=== PATIENT | female | born 1935 | race Caucasian/White ===

== ENCOUNTER 2023-03-02 22:03 | Emergency (ER) | payer MEDICARE ==
[~2023-03-02] VITALS: Ht 157.5 cm; Wt 91.9 kg
[2023-03-02] MEDS ORDERED: SODIUM CHLORIDE 0.9% 1,000 ML IV ONE (23:15)
[2023-03-02] MEDS ORDERED: 0.9% SODIUM CHLORIDE 10 ML SYRINGE IVP PRN (23:15)
[2023-03-02] MEDS ORDERED: MELO-106 PO (23:17)
[2023-03-02] MEDS ORDERED: LISI40TA9 PO (23:17)
[2023-03-02] MEDS ORDERED: PANT40TA54 PO (23:17)
[2023-03-02] MEDS ORDERED: FERR-72 PO (23:17)
[2023-03-02] MEDS ORDERED: GLIP10TA9 PO (23:17)
[2023-03-02] MEDS ORDERED: METF-446 PO (23:17)
[2023-03-02] MEDS ORDERED: AMLO10TA55 PO (23:17)
[2023-03-02] MEDS ORDERED: LOVA40TA2 PO (23:17)
[2023-03-02] MEDS ORDERED: GABA-1181 PO (23:19)
[2023-03-02] MEDS ORDERED: METO-391 PO (23:19)
[2023-03-02 23:36] LABS: BASOPHILS % (AUTO) 0.3 % (0.0-2.0); EOSINOPHILS % (AUTO) 0.2 % (1.0-6.0); HEMATOCRIT 24.4 % (36-46); HEMOGLOBIN 7.9 g/dL (12.0-16.0); LYMPHOCYTES # (AUTO) 1.7 K/uL (1.0-4.8); LYMPHOCYTES % (AUTO) 13.8 % (22.0-44.0); MEAN CORPUSCULAR HEMOGLOBIN 29.4 pg (26.0-34.0); MEAN CORPUSCULAR HGB CONC 32.4 G/dL (31.0-37.0); MEAN CORPUSCULAR VOLUME 91 fL (80-100); MONOCYTES # (AUTO) 0.8 K/uL (0.1-1.0); MONOCYTES % (AUTO) 6.7 % (2.0-9.0); PLATELET COUNT (AUTO) 253 K/uL (150-450); RED BLOOD CELL COUNT(AUTO) 2.69 MIL/uL (4.00-5.20); RED CELL DISTRIBUTION WIDTH 14.9 % (11.5-14.5); WHITE BLOOD COUNT (AUTO) 12.7 K/uL (4.5-11.0)
[2023-03-02 23:45] LABS: ANION GAP 10 mmol/L (8-16); CALCIUM, TOTAL 8.5 mg/dL (8.8-10.5); CARBON DIOXIDE 26 mmol/L (22-29); CHLORIDE 100 mmol/L (98-107); CREATININE 1.75 mg/dL (0.60-1.30); GLOMERULAR FILTR. RATE CALC 28 mL/min (>60); GLUCOSE,RANDOM 163 mg/dL (70-110); POTASSIUM 4.5 mmol/L (3.5-5.1); SODIUM SERUM 136 mmol/L (136-145); UREA NITROGEN, BLOOD 30 mg/dL (7-18)
[2023-03-02 23:52] LABS: TROPONIN I-HIGH SENSITIVITY 23 ng/L (<51)
[2023-03-03 00:01] LABS: ALANINE AMINOTRANSFERASE 25 U/L (12-78); ALBUMIN 2.9 g/dL (3.4-5.0); ALKALINE PHOSPHATASE 110 U/L (46-116); ASPARTATE AMINOTRANSFERASE 24 U/L (15-37); B-TYPE NATRIURETIC PEPTIDE 89 pg/mL (0-100); BILIRUBIN,TOTAL 0.3 mg/dL (0.1-1.0); CREATINE KINASE, TOTAL ONLY 86 U/L (26-192); TOTAL PROTEIN, SERUM 6.9 g/dL (6.4-8.2)
[2023-03-03 00:02] LABS: COVID AG,FIA SOURCE NASAL SWAB
[2023-03-03 00:03] LABS: APPEARANCE,URINE TURBID (CLEAR); BILIRUBIN,URINE NEGATIVE (NEGATIVE); COLOR,URINE LIGHT ORANGE (YELLOW); GLUCOSE, URINE (UA) NEGATIVE (NEGATIVE); KETONES,URINE NEGATIVE (NEGATIVE); LEUKOCYTE ESTERASE ,URINE LARGE (NEGATIVE); NITRATE,URINE NEGATIVE (NEGATIVE); OCCULT BLOOD,URINE NEGATIVE (NEGATIVE); PROTEIN,URINE 300-600,SEE CONFIRM mg/dL (NEGATIVE); SPECIFIC GRAVITIY, URINE 1.013 (1.003-1.030)
[2023-03-03 00:17] LABS: SULFOSALICYLIC ACID,URINE 3+ (Negative)
[2023-03-03 00:18] LABS: BACTERIA,URINE Many /HPF (None Seen); RBC,URINE None Seen /HPF (0-2); SQUAMOUS EPITHELIAL CELL,UR None Seen /LPF (None Seen)
[2023-03-03 00:23] LABS: LACTIC ACID 3.2 mmol/L (0.4-2.0)
[2023-03-03 00:25] LABS: INFLUENZA TYPE A NEGATIVE FOR TYPE A (NEGATIVE); INFLUENZA TYPE B NEGATIVE FOR TYPE B (NEGATIVE); SARS-COV2 (COVID) ANTIGEN,FIA Negative (Negative)
[2023-03-03] MEDS ORDERED: PIPERACILLIN/TAZO 3.375 GM/D5W 50 ML IV ONE (00:45)
[2023-03-03] MEDS ORDERED: SODIUM CHLORIDE 0.9% 1,000 ML IV ONE (05:00)
[2023-03-03 05:04] VITALS: BP 111/67; PULSE 76; RESP 18; TEMP 98.2
== END 2023-03-03 08:20 | disposition short-term general hospital (02) ==
LOC: EMS 22:24
DX: A41.9 Sepsis, unspecified organism (principal); E86.0 Dehydration; I95.9 Hypotension, unspecified; E11.9 Type 2 diabetes mellitus without complications; Z88.2 Allergy status to sulfonamides; Z88.8 Allergy status to other drugs, medicaments and biological substances; Z20.822 Contact with and (suspected) exposure to COVID-19
CPT/HCPCS: 99285; 96365; 71045; 96361; 87426; 80053; 81001; 82550; 83880; 84484; 85025; 87040; 87804; 87086; 87186; 93005; 51702; 84145; 83605; 36415; J7030; J2543; 81002